=== PATIENT | female | born 1970 | race Caucasian/White ===

== ENCOUNTER 2016-10-30 14:45 | Emergency (ER) | payer BC ==
[2016-10-30] MEDS ORDERED: KETOROLAC 60 MG/2 ML VIAL IM ONE (15:36)
[2016-10-30] MEDS ORDERED: DUONEB INH ONE ×2 (15:44)
== END 2016-10-30 16:56 | disposition home or self-care (01) ==
LOC: ER 14:45
CPT/HCPCS: 71020; 82947; 94640; 96372

== ENCOUNTER 2016-11-12 15:36 | Emergency (ER) | payer BC ==
[2016-11-12] MEDS ORDERED: OPTIRAY 350 50 ML HMH IV ONE (15:37)
[2016-11-12] MEDS ORDERED: KETOROLAC 30 MG/ML VIAL ONE (18:58)
== END 2016-11-12 20:54 | disposition home or self-care (01) ==
LOC: ER 15:36
DX: K11.21 Acute sialoadenitis (principal); E11.9 Type 2 diabetes mellitus without complications; J44.9 Chronic obstructive pulmonary disease, unspecified; Z79.84 Long term (current) use of oral hypoglycemic drugs
CPT/HCPCS: 70487; 80048; 96374; 99284; J1885; Q9967